=== PATIENT | female | born 1990 | race Caucasian/White ===

== ENCOUNTER 2016-07-21 09:34 | Inpatient (IN) | payer OTHER ==
[2016-07-21 10:02] LABS: MANUAL DIFF NEEDED? NO
[2016-07-21 10:03] LABS: BASO% 0.1 % (0.0-0.8); EOS# 0.06 X1000 (0.0-0.7); EOS% 0.4 % (0.0-10.0); HEMATOCRIT 36.2 % (37.0-47.0); HEMOGLOBIN 12.4 g/dL (12.0-16.0); IMM GRAN# 0.04 X1000 (0.0-0.04); IMM GRAN% 0.3 % (0.0-0.5); LYMPH# 2.83 X1000 (1.2-3.4); LYMPH% 18.9 % (20.5-51.1); MCHC 34.3 g/dL (33-37); MCV 87.7 FL (81-99); MONO# 0.84 X1000 (0.11-0.59); MONO% 5.6 % (1.7-9.3); MPV 10.9 FL (7.4-10.4); NEUT% 74.7 % (42.2-75.2); PLT 221 X1000 (130-400); RBC 4.13 XMIL (4.2-5.4)
[2016-07-21 10:35] LABS: AGAP 12; ALKALINE PHOSPHATASE 115 U/L (32-104); BUN 9 mg/dL (8-22); CALCIUM 8.7 mg/dL (8.8-10.2); CHLORIDE 102 mmol/L (98-107); COSMO 267; GOT 13 U/L (10-30); GPT 12 U/L (10-36); POTASSIUM 3.5 mmol/L (3.5-5.1); SODIUM 133 mmol/L (136-145); TCO2 20 mmol/L (25-35); TOTAL BILIRUBIN < 0.15 mg/dL (0.20-1.00); TOTAL PROTEIN 6.4 g/dL (6.3-8.3)
[2016-07-21] MEDS ORDERED: PEPCID IV PRN (11:40)
[2016-07-21] MEDS ORDERED: TYLENOL PO PRN (11:40)
[2016-07-21] MEDS ORDERED: REGLAN PO ONE (11:40)
[2016-07-21] MEDS ORDERED: PEPCID PO ONE (11:40)
[2016-07-21] MEDS ORDERED: AMBIEN PO PRN (11:40)
[2016-07-21] MEDS ORDERED: PEPCID PO PRN (11:40)
[2016-07-21] MEDS ORDERED: CYTOTEC PO ONE (11:40)
[2016-07-21] MEDS ORDERED: BRETHINE SUBQ PRN (11:40)
[2016-07-21] MEDS ORDERED: STADOL IV PRN ×2 (11:40)
[2016-07-21] MEDS ORDERED: PITOCIN 30 UNITS/LR 500 ML IV SCH (11:45)
[2016-07-21] MEDS ORDERED: APRESOLINE IV ONE (11:48)
[2016-07-21] MEDS: LR 1,000 ML IV SCH ×3 (12:32→23:57)
[2016-07-21] MEDS: CLINDAMYCIN 900 MG/NS 50 ML IV SCH ×2 (12:43→20:52)
[2016-07-21] MEDS: ZOFRAN IV PRN ×2 (14:12→21:54)
[2016-07-21] MEDS: STADOL IV PRN ×4 (14:15→21:54)
[2016-07-21] MEDS ORDERED: APRESOLINE IV PRN (14:37)
[2016-07-21] MEDS ORDERED: FENTANYL-BUPIV-NS 2 MCG-0.1% 200 ML EPIDURAL PRN (15:47)
[2016-07-21 15:50] LABS: MANUAL DIFF NEEDED? NO
[2016-07-21 15:56] LABS: BASO% 0.2 % (0.0-0.8); EOS# 0.06 X1000 (0.0-0.7); EOS% 0.4 % (0.0-10.0); HEMATOCRIT 37.8 % (37.0-47.0); HEMOGLOBIN 12.6 g/dL (12.0-16.0); IMM GRAN# 0.03 X1000 (0.0-0.04); IMM GRAN% 0.2 % (0.0-0.5); LYMPH# 2.67 X1000 (1.2-3.4); MCH 29.9 PG (27-31); MCHC 33.3 g/dL (33-37); MCV 89.6 FL (81-99); MONO# 0.91 X1000 (0.11-0.59); MONO% 5.5 % (1.7-9.3); MPV 11.2 FL (7.4-10.4); NEUT% 77.7 % (42.2-75.2); PLT 208 X1000 (130-400); RBC 4.22 XMIL (4.2-5.4)
[2016-07-21] MEDS ORDERED: XYLOCAINE-MPF 1% INJ ONE (16:00)
[2016-07-21 16:28] LABS: AGAP 14; ALBUMIN 3.1 g/dL (3.5-5.0); ALKALINE PHOSPHATASE 114 U/L (32-104); BUN 10 mg/dL (8-22); CALCIUM 8.7 mg/dL (8.8-10.2); CHLORIDE 103 mmol/L (98-107); COSMO 269; GOT 12 U/L (10-30); GPT 11 U/L (10-36); POTASSIUM 3.5 mmol/L (3.5-5.1); SODIUM 135 mmol/L (136-145); TCO2 19 mmol/L (25-35); TOTAL BILIRUBIN < 0.15 mg/dL (0.20-1.00); TOTAL PROTEIN 6.6 g/dL (6.3-8.3)
[2016-07-21] MEDS: CYTOTEC PO SCH ×2 (16:48→20:55)
[2016-07-21] MEDS ORDERED: XYLOCAINE-MPF 1% 5 ML ONE (23:30)
[2016-07-21] MEDS ORDERED: FENTANYL ONE (23:30)
[2016-07-22] MEDS: CLINDAMYCIN 900 MG/NS 50 ML IV SCH ×2 (04:48→11:58)
[2016-07-22 06:37] LABS: MANUAL DIFF NEEDED? NO
[2016-07-22 06:39] LABS: BASO% 0.1 % (0.0-0.8); HEMATOCRIT 38.1 % (37.0-47.0); HEMOGLOBIN 12.7 g/dL (12.0-16.0); IMM GRAN# 0.06 X1000 (0.0-0.04); IMM GRAN% 0.3 % (0.0-0.5); LYMPH# 2.05 X1000 (1.2-3.4); LYMPH% 10.4 % (20.5-51.1); MCH 29.9 PG (27-31); MCHC 33.3 g/dL (33-37); MCV 89.6 FL (81-99); MONO# 1.05 X1000 (0.11-0.59); MONO% 5.3 % (1.7-9.3); MPV 11.1 FL (7.4-10.4); NEUT% 83.9 % (42.2-75.2); PLT 243 X1000 (130-400); RBC 4.25 XMIL (4.2-5.4)
[2016-07-22] MEDS: LR 1,000 ML IV SCH (10:17)
[2016-07-22] MEDS ORDERED: ZOFRAN IV PRN ×3 (11:08→16:37)
[2016-07-22] MEDS ORDERED: PEPCID IV ONE (13:45)
[2016-07-22] MEDS ORDERED: BICITRA PO ONE (13:45)
--- NOTE | 2016-07-22 14:34 | HISTORY AND PHYSICAL ---
PREOPERATIVE DIAGNOSES: 1. Intrauterine at 38+ weeks. 2. Gestational diabetes. 3. Hypertension. 4. Maternal obesity. 5. Rubella nonimmune. 6. Group B Streptococcus carrier status positive. 7. Arrest of descent. CONDITION: Stable. HISTORY OF PRESENT ILLNESS: Ms Palma is a 26-year-old primigravida with estimated date of delivery of 08/03/2016, placing her at 38 weeks and 2 days, being induced for elevated blood pressures and the above diagnoses. She was admitted last night. Labs have been stable. She has had a few doses of Apresoline. She received Cytotec and then Pitocin. She was artificially ruptured. Had epidural anesthesia. In spite of adequate contractions on Pitocin, she has not advanced past the - 2 station and is developing some caput. I feel that after discussion we will proceed with a delivery. She has had care since first trimester. She was initially noted to have slightly elevated blood pressure. A 24 hour urine was done and was normal. She also due to her maternal obesity was given early Glucola which she failed, and she did fail the 3 hour test and has been on DiaBeta oral medication with good results. Undergoing NST's late in the . She was also found to be positive for GBS. PAST MEDICAL HISTORY: Negative. PAST SURGICAL HISTORY: Negative. HABITS: She denies tobacco, alcohol, or drug use. MEDICATIONS: DiaBeta and vitamins. ALLERGIES: She is allergic to penicillin which give her hives. FAMILY HISTORY: For diabetes and hypertension. PHYSICAL EXAMINATION: VITAL SIGNS: Most recent vitals reveal blood pressure 143/80, temp 98.4 degrees, pulse 85, respirations 20. GENERAL: She is alert and cooperative. She is not in any distress. NECK: Supple. LUNGS: Clear. HEART: Regular sinus rhythm. ABDOMEN: Gravid. Cervix is 6, 80%, but with -2 station and developing caput. There is +2 lower extremity edema. LABORATORY VALUES: White count of 19, hemoglobin and hematocrit 12/38, and platelets 243. Chemistries done yesterday afternoon: No elevated liver functions. ASSESSMENT: As above. PLAN: Primary low transverse delivery.
[2016-07-22] MEDS ORDERED: PITOCIN 20 UNITS/LR 1,000 ML ONE (14:45)
[2016-07-22] MEDS ORDERED: DURAMORPH ONE (14:45)
[2016-07-22] MEDS ORDERED: SENSORCAINE-MPF 0.5%/EPI 1:200,000 ONE (14:46)
[2016-07-22] MEDS ORDERED: ZOFRAN ONE (14:46)
[2016-07-22] MEDS ORDERED: NESACAINE-MPF 3% ONE (14:46)
[2016-07-22] MEDS ORDERED: AMBIEN PO PRN (16:36)
[2016-07-22] MEDS ORDERED: MYLICON PO PRN (16:36)
[2016-07-22] MEDS ORDERED: DULCOLAX PR PRN (16:36)
[2016-07-22] MEDS ORDERED: PHENERGAN IM PRN (16:36)
[2016-07-22] MEDS ORDERED: PERCOCET-5 PO PRN (16:36)
[2016-07-22] MEDS ORDERED: CYTOTEC PO PRN (16:36)
[2016-07-22] MEDS ORDERED: PERCOCET-10 PO PRN (16:36)
[2016-07-22] MEDS ORDERED: PITOCIN IM PRN (16:36)
[2016-07-22] MEDS ORDERED: CLARITIN PO PRN (16:36)
[2016-07-22] MEDS ORDERED: HYDROXYZINE IM PRN (16:36)
[2016-07-22] MEDS ORDERED: BOOSTRIX VACCINE IM ONE (16:36)
[2016-07-22] MEDS ORDERED: PITOCIN 20 UNITS/LR 1,000 ML IV ONE (16:36)
[2016-07-22] MEDS ORDERED: PITOCIN 10 UNITS/LR 1,000 ML IV SCH (16:36)
[2016-07-22] MEDS ORDERED: DEMEROL PO PRN ×2 (16:36)
[2016-07-22] MEDS ORDERED: M-M-R II VACCINE SUBQ ONE (16:36)
[2016-07-22] MEDS ORDERED: HYDROXYZINE PO PRN (16:36)
[2016-07-22] MEDS ORDERED: DEMEROL IM PRN (16:36)
[2016-07-22] MEDS ORDERED: ZOFRAN ODT PO PRN (16:37)
[2016-07-22] MEDS ORDERED: BENADRYL IV PRN (16:37)
[2016-07-22] MEDS ORDERED: NARCAN INJ PRN (16:37)
[2016-07-22] MEDS ORDERED: NORCO-10 PO PRN (16:38)
[2016-07-22] MEDS ORDERED: NORCO-5 PO PRN (16:38)
[2016-07-22] MEDS: TORADOL IV SCH (17:26)
--- NOTE | 2016-07-22 18:01 | OPERATIVE NOTE ---
PROCEDURE DATE: 07/22/2016 PREOP: 1. Intrauterine at 38 and 2. 2. Gestational diabetes medication controlled. 3. Hypertension. 4. Group B strep carrier status positive. 5. Maternal obesity. 6. Rubella nonimmune. 7. Arrest of descent. POSTOP DIAGNOSES: 1. Intrauterine at 38 and 2. 2. Gestational diabetes medication controlled. 3. Hypertension. 4. Group B strep carrier status positive. 5. Maternal obesity. 6. Rubella nonimmune. 7. Arrest of descent. PROCEDURE: Primary low transverse section. PHYSICIAN: Dr. Cha. ANESTHESIA: Epidural with Dr. Arriaga. FINDINGS: Viable male . Do not have weight or Apgars. No complications. ESTIMATED BLOOD LOSS: 500 mL. DRAINS: Beckwith catheter. Please refer to Ms. Palma H and P dictation and records. DESCRIPTION OF PROCEDURE: She was brought to the operating room where all questions were answered. She was prepped and draped sterile position after dosing anesthesia. Pfannenstiel skin incision was made through the subcuticular tissue. Fascia was cut with the Mayos. Muscle pulled to the side. Peritoneum was entered bluntly. Hysterotomy incision made lower uterine segment. delivered through the hysterotomy incision without difficulty. Cord was doubly clamped and cut 3-vessel cord. care taken over by nursery. Uterus was massaged placenta. Once this was done uterus was exteriorized. Hysterotomy incision closed with 0 Vicryl running and locking. Fundus, tubes and ovaries appeared normal. Uterus placed back into the abdomen. Irrigation was done. Some oozing. Surgifoam was placed. Peritoneum was closed with 0 chromic. Muscle plicated in midline with same 0 chromic. Fascia closed with interrupted stitches of 0 Polysorb then a running nonlocking stitch 2-0 Polysorb. Subcu tissue irrigated. Luigi fascia reapproximated with 1 chromic. Skin reapproximated with 4-0 Biosyn subcuticular stitch. All counts correct. Expect routine care.
[2016-07-22] MEDS: DIABETA PO SCH (19:04)
[2016-07-22] MEDS: MYLICON PO SCH ×2 (19:04→20:38)
[2016-07-22] MEDS: PERICOLACE PO SCH (20:39)
[2016-07-23] MEDS: TORADOL IV SCH ×2 (00:44→07:25)
[2016-07-23 05:57] LABS: MANUAL DIFF NEEDED? NO
[2016-07-23] MEDS: MYLICON PO SCH ×4 (09:46→21:07)
[2016-07-23] MEDS: DIABETA PO SCH ×2 (09:46→18:12)
[2016-07-23] MEDS: PRECARE PO SCH (09:46)
[2016-07-23 10:03] LABS: BASO% 0.1 % (0.0-0.8); EOS# 0.03 X1000 (0.0-0.7); EOS% 0.2 % (0.0-10.0); HEMATOCRIT 32.9 % (37.0-47.0); HEMOGLOBIN 10.6 g/dL (12.0-16.0); IMM GRAN# 0.05 X1000 (0.0-0.04); IMM GRAN% 0.3 % (0.0-0.5); LYMPH% 13.9 % (20.5-51.1); MCHC 32.2 g/dL (33-37); MCV 89.9 FL (81-99); MONO# 1.19 X1000 (0.11-0.59); MONO% 6.6 % (1.7-9.3); MPV 11.6 FL (7.4-10.4); NEUT% 78.9 % (42.2-75.2); PLT 187 X1000 (130-400); RBC 3.66 XMIL (4.2-5.4)
[2016-07-23] MEDS: MOTRIN PO PRN ×2 (15:44→23:54)
[2016-07-23] MEDS ORDERED: LR 1,000 ML IV SCH (15:57)
[2016-07-23] MEDS: PERICOLACE PO SCH (21:07)
[2016-07-24 09:03] VITALS: BP 165/95
[2016-07-24] MEDS: MOTRIN PO PRN (09:04)
[2016-07-24] MEDS: PRECARE PO SCH (09:04)
[2016-07-24] MEDS: DIABETA PO SCH (09:04)
[2016-07-24] MEDS: MYLICON PO SCH (09:05)
--- NOTE | 2016-07-24 18:16 | DISCHARGE SUMMARY ---
ADMISSION DATE: 07/21/2016 DISCHARGE DATE: 07/24/2016 ADMITTING DIAGNOSIS: 1. Intrauterine at 38+ weeks. 2. Gestational diabetes. 3. Hypertension. 4. Maternal obesity. 5. Arrest of descent. POSTOPERATIVE DIAGNOSIS: 1. Intrauterine at 38+ weeks. 2. Gestational diabetes. 3. Hypertension. 4. Maternal obesity. 1. Arrest of descent. 2. Status post primary section. HISTORY OF PRESENT ILLNESS: The patient is a 26-year-old G1 with intrauterine at 38 weeks and 2 days who presented for induction of labor secondary to complications of hypertension and gestational diabetes. Patient made it to complete dilation; however, was noted to have failure of descent. So patient underwent primary abdominal delivery. Please see full operative report for details. Postoperatively, patient was transferred to the floor for routine postoperative care. On postop day #1, hematocrit returned 32.9, Beckwith catheter was discontinued and patient demonstrated the ability to void and on postop day #2, the patient was tolerating a regular diet, ambulating without difficulty with normal lochia and was felt to be stable for discharge home. DISCHARGE DISPOSITION: The patient is discharged home. PRIMARY PROCEDURE: Primary section. FOLLOWUP: Patient is to follow up in 1 week for postop visit.
== END 2016-07-24 14:25 | disposition home or self-care (01) | DRG 766 ==
LOC: P.OPLD 09:34 → P.LD 09:36 → P.OPLD 11:15 → P.LD 11:16 → P.WC 07-22 17:33
PROVIDERS: ADMIT Obstetrics & Gynecology; ATTEND Obstetrics & Gynecology
PROC: 10907ZC Drainage of Amniotic Fluid, Therapeutic from Products of Conception, Via Natural or Artificial Opening (ICD-10-PCS; 2016-07-22)
PROC: 3E033VJ Introduction of Other Hormone into Peripheral Vein, Percutaneous Approach (ICD-10-PCS; 2016-07-22)
PROC: 10D00Z1 Extraction of Products of Conception, Low, Open Approach (ICD-10-PCS; principal; 2016-07-22 15:00)
DX: O13.4 Gestational [pregnancy-induced] hypertension without significant proteinuria, complicating childbirth (principal); E66.9 Obesity, unspecified; O32.4XX0 Maternal care for high head at term, not applicable or unspecified; O62.1 Secondary uterine inertia; O99.824 Streptococcus B carrier state complicating childbirth; Z37.0 Single live birth; O99.214 Obesity complicating childbirth; O24.425 Gestational diabetes mellitus in childbirth, controlled by oral hypoglycemic drugs; Z3A.38 38 weeks gestation of pregnancy; Z28.3 Underimmunization status; Z83.3 Family history of diabetes mellitus; Z82.49 Family history of ischemic heart disease and other diseases of the circulatory system; Z79.84 Long term (current) use of oral hypoglycemic drugs; Z23 Encounter for immunization
CPT/HCPCS: 54150; 59025; 80053; 82016; 82017; 82128; 82139; 82247; 82261; 82775; 82776; 82947; 82948; 83020; 83021; 83498; 83520; 83789; 84030; 84437; 84443; 84450; 84510; 85025; 86592; 86850; 86900; 86901; 90707; 90715; 90744; 94799; J0360; J0595; J1885; J2274; J2400; J2405; J2590; J3010; J3430; J7120; S0020; S0028; S0077